=== PATIENT | female | born 1980 | race Caucasian/White ===

== ENCOUNTER → 2017-07-29 | Outpatient (CLI) | payer BC | END | disposition home or self-care (01) | LOC: C.PAPS 12:14 | PROVIDERS: ATTEND Family Medicine | DX: Z12.72 Encounter for screening for malignant neoplasm of vagina (principal) ==

== ENCOUNTER → 2017-10-09 | Day surgery (SDC) | payer BC ==
[2017-10-08 07:47] VITALS: Ht 160 cm; Wt 84.1 kg
--- NOTE | 2017-10-08 08:33 | History and Physical: Surg Cnt ---
History & Physical Date Oct 08, 2017. Chief Complaint ear infection, left History of Present Illness The patient is a 37 year old female with complaints of acute persistent left otitis media, failed antibiotics plus rocephin injections x 2, impending mastoiditis Additional History Hepatic Disease: No Endocrine Disorder: No Kidney Disease: No Hypertension: No Heart Disease: No Bleeding Tendencies: No Infectious Diseases: No Allergies Coded Allergies: Sulfa Antibiotics (Verified Allergy, Severe, HIVES AND ANAPHYLAXIS, ) Home Medications Scheduled Amoxicillin & Pot Clavulanate (Augmentin 875-125 mg), 1 TAB PO BID Citalopram Hydrobromide (Celexa), 40 MG PO QPM Levothyroxine Sodium (Synthroid), 150 MCG PO QAM Montelukast Sodium (Singulair), 10 MG PO QPM Multivitamin (Multivitamin), 1 TAB PO DAILY Prednisone (Deltasone), 10 MG PO UD Scheduled PRN Albuterol Hfa (Ventolin Hfa), 2-4 PUFFS INH Q6H PRN for SOB/Wheezing Physical Examination Skin: warm/dry, no rash Eyes: normal inspection, EOMI, sclerae normal ENT: normal ENT inspection, pharynx normal, + pertinent finding (left TM, dull , bulging, fluid) Head: normocephalic, atraumatic Neck: supple, no adenopathy, trachea midline Respiratory/Chest: lungs clear, normal breath sounds, no respiratory distress Cardiovascular: regular rate, rhythm, no edema, no murmur Abdomen / GI: normal bowel sounds, non tender Back: normal inspection Extremities: normal inspection, normal range of motion Neurologic/Psych: no motor/sensory deficits, alert, normal reflexes, oriented x 3 Diagnosis COME, left Plan of Treatment left PE tube
[~2017-10-09] VITALS: Ht 160 cm; Wt 84.1 kg
[~2017-10-09] MED LIST: AMOX875T PO; ATROPINE SULFATE 0.1 MG/ML 5ML SYR IV PRN; CITA40TA12 PO; DEXAMETHASONE SOD INJ 4 MG/ML VIAL IV PRN; DEXAMETHASONE SOD INJ 4 MG/ML VIAL ONE; EpHEDrine SULFATE INJ 50 MG/ML AMP IV PRN; FENTANYL CITRATE INJ 50 MCG/1 ML 2 ML VIAL IV PRN; FENTANYL CITRATE INJ 50 MCG/1 ML 2 ML VIAL ONE; HYDROCODONE/ACETAMOPHEN 5/325MG TAB PO PRN; KETOROLAC TROMETHAMINE 30 MG/ML VIAL IV. PRN; LABETALOL HCL IV 5 MG/ML 20ML IV PRN; LACTATED RINGER'S 1000ML 1,000 ML IV SCH; LEVO150T PO; LIDOCAINE HCL 2% 2 ML VIAL (20MG/ML) ONE; METOCLOPRAMIDE HCL INJ 5 MG/ML 2 ML VIAL IV PRN; MIDAZOLAM HCL 1 MG/ML 2ML VIAL ONE; MONT1TAB3 PO; MULT-506 PO; MoRPHine SULFATE 10 MG/ML CARP/VIAL IV PRN; OFLO0.3D4 OT; OFLOXACIN 0.3% OP SOLN 5 ML BTL ONE; ONDANSETRON INJ 2 MG/ML 2 ML VIAL IV PRN; ONDANSETRON INJ 2 MG/ML 2 ML VIAL ONE; PHENYLEPHRINE 100MCG/ML 5ML SYR IV PRN; PRED-603 PO; PROPOFOL IV EMULSION 10 MG/ML 20 ML VIAL IV ONE; SODIUM CHLORIDE 0.9% 1000ML 1,000 ML IV SCH; TETRACAINE HCL (OPHTH) 60 DROPS/4 ML BTL OP ONE; VNTHFA/IN INH
--- NOTE | 2017-10-09 10:18 | History & Physical Bridge Note ---
H&P Re-Evaluation Bridge Note: I have examined the patient, reviewed the History & Physical and in the interval since the performance of the History & Physical I have noted the following changes of clinical significance: No changes noted
--- NOTE | 2017-10-09 12:34 | Discharge Instructions-SurgCtr ---
Discharge Instructions Date of Service Oct 09, 2017. Visit Reason for Visit: Left Chronic O.m. With Effusion Discharge Discharge Diagnosis / Problem: same Discharge Goals Goal(s): Therapeutic intervention Activity Recommendations Activity Limitations: resume your previous activity Anesthesia . Post Anesthesia Instructions: If you have had General Anesthesia or IV Sedation: * Do not drive today. * Resume driving when surgeon permits. * Do not make important decisions or sign legal documents today. * Call surgeon for: 1. Temperature elevations greater than 101 degrees F. 2. Uncontrollable pain. 3. Excessive bleeding. 4. Persistent nausea and vomiting. 5. Medication intolerance (nausea, vomiting or rash). * For nausea and vomiting use only clear liquids such as: tea, soda, bouillon until nausea subsides, then gradually increase diet as tolerated. * If you have any concerns or questions, call your surgeon's office. If physician is unavailable and it is an emergency, call 911 or go to the nearest emergency room. . Instructions / Follow-Up Instructions / Follow-Up ACTIVITY RECOMMENDATIONS: * Take it easy today. * Return to regular activity tomorrow. OVER THE COUNTER MEDICATIONS: * You may use Tylenol for pain * Avoid aspirin or aspirin containing products, e.g. as they may increase bleeding. DIET: Resume previous diet RETURN TO SCHOOL/WORK: May return to normal activities tomorrow. SPECIAL CARE INSTRUCTIONS: * Drainage is not unusual during the first few days after placement of tubes. The drainage may be bloody. If it is foul smelling or very thick, please notify the doctor. Call or cell phone . * Keep water out of the ears when shampooing or bathing. Use cotton balls covered with Vaseline or "Macks" ear plugs. * Call physician if increased pain, fever over 101 degrees F. or any problems. FOLLOW UP VISIT: Follow-up Visit with Dr. Mathews in 2 weeks. Please call to schedule. Diet Recommendations Home Diet: no limitations Procedures Procedures Performed: Left PE Tube Insertion Pending Studies Studies pending at discharge: no Medical Emergencies . Who to Call and When: Medical Emergencies: If at any time you feel your situation is an emergency, please call 911 immediately. . Non-Emergent Contact Non-Emergency issues call your: Primary Care Provider . . "Provider Documentation" section prepared by Erin Suazo PA Drug Monitoring Program Search Results: no issues identified
--- NOTE | 2017-10-09 12:55 | OPERATIVE REPORT ---
DATE OF OPERATION: 10/09/2017 PREOPERATIVE DIAGNOSIS: Acute otitis media with early mastoiditis of the left ear. POSTOPERATIVE DIAGNOSIS: Same. PROCEDURE: Left myringotomy and PE tube insertion. SURGEON: Dr. Mtahews. ANESTHESIA: General LMA. COMPLICATIONS: None. BLOOD LOSS: Minimal. HISTORY OF PRESENT ILLNESS: This 37-year-old lady presented with acute onset of otitis media, treated with p.o. antibiotics with failure to respond, treated with 2 injections of Rocephin, but continues to have pain and hearing loss. DESCRIPTION OF PROCEDURE: The patient was brought to the operating room and placed in the supine position. General anesthesia was induced using LMA. The left ear was visualized, irrigated with peroxide, and cleaned of cerumen. Myringotomy incision was made anterior inferiorly and thick fluid was evacuated from the middle ear space. The Paparella tube was inserted without difficulty. The patient tolerated the procedure well and was taken to the recovery area in satisfactory condition. I attest to the content of the Intraoperative Record and any orders documented therein. Any exception s are noted below.
[2017-10-09 13:29] VITALS: TEMP 36.6
[2017-10-09 13:51] VITALS: BP 116/77; PULSE 71; O2SAT 98
--- NOTE | 2017-10-09 13:57 | Anesthesia Progress Nt - [facility] ---
Anesthesia Post Op Note Date & Time Oct 09, 2017 at 13:57 Vital Signs Pain Intensity: 0 Vital Signs Past 12 Hours Date Time Temp Pulse Resp B/P (MAP) Pulse Ox O2 Delivery O2 Flow Rate FiO2 10/09/17 13:51 71 18 116/77 (90) 98 Room Air 10/09/17 13:29 36.6 10/09/17 13:28 36.2 86 18 126/86 (99) 98 Room Air 10/09/17 13:26 76 10/09/17 13:26 76 124/ (82) 96 10/09/17 13:21 71 13 118/72 (78) 98 10/09/17 13:21 73 13 10/09/17 13:16 71 16 109/76 (83) 97 10/09/17 13:16 72 16 10/09/17 13:11 71 12 10/09/17 13:11 70 12 116/75 (92) 96 10/09/17 13:06 69 12 108/75 (91) 97 10/09/17 13:06 70 12 10/09/17 13:01 71 12 10/09/17 13:01 72 12 122/78 (83) 96 10/09/17 12:57 Room Air 10/09/17 12:56 71 12 115/77 (85) 98 10/09/17 12:56 73 12 10/09/17 12:51 70 14 117/83 (89) 10/09/17 12:51 14 10/09/17 12:46 14 10/09/17 12:46 76 14 111/72 (86) 10/09/17 12:41 13 10/09/17 12:41 74 13 108/70 (84) 10/09/17 12:36 79 16 106/73 (80) 100 10/09/17 12:36 80 16 10/09/17 12:32 101/64 (91) 10/09/17 12:29 36.6 76 16 101/64 97 Diffusion Mask 5 10/09/17 09:43 36.7 80 18 129/87 (101) 100 Room Air Notes Mental Status: alert / awake / arousable, participated in evaluation Pt Amnestic to Procedure: Yes Nausea / Vomiting: adequately controlled Pain: adequately controlled Airway Patency, RR, SpO2: stable & adequate BP & HR: stable & adequate Hydration State: stable & adequate Anesthetic Complications: no major complications apparent
== END | disposition home or self-care (01) ==
LOC: X.SURG 09:30
PROVIDERS: ATTEND Otolaryngology
DX: H66.92 Otitis media, unspecified, left ear (principal); H70.92 Unspecified mastoiditis, left ear; Z90.89 Acquired absence of other organs; F32.9 Major depressive disorder, single episode, unspecified; Z79.899 Other long term (current) drug therapy; J45.909 Unspecified asthma, uncomplicated; Z88.2 Allergy status to sulfonamides

== ENCOUNTER 2023-01-29 13:43 | Observation (INO) ==
[2023-01-29] MEDS ORDERED: SODIUM CHLOR 7% 4 ML NEB NEB ONE (14:56)
[2023-01-29] MEDS ORDERED: ENOXAPARIN INJ 40 MG/0.4 ML SYR SQ ONE (15:04)
[2023-01-29] MEDS ORDERED: ACETAMINOPHEN 325 MG TAB PO PRN (15:14)
[2023-01-29] MEDS ORDERED: LEVOTHYROXINE SODIUM 150 MCG TABLET PO SCH (15:15)
[2023-01-29] MEDS ORDERED: Patient's HEIGHT &/or WEIGHT Needed SCH (15:15)
[2023-01-29] MEDS ORDERED: LEVALBUTEROL HCL 1.25 MG/3 ML NEB ONE (15:18)
--- NOTE | 2023-01-29 16:36 | XRay Report ---
XR chest 2V PA/lateral HISTORY: Shortness of breath. COMPARISON: None. FINDINGS: The lungs are clear. Cardiac silhouette is normal in size. No pleural effusions. No pneumot horax. IMPRESSION: No acute process. ACT 112: Negative or not required by law. Electronically signed by: Willie Powell M.D. 01/29/2023 4:34 PM
[2023-01-29 17:18] LABS: Basophils # (auto) 0.03 K/uL (0-0.2); Basophils % (auto) 0.2 %; Eosinophils # (auto) 0.03 K/uL (0-0.50); Eosinophils % (auto) 0.2 %; Hematocrit (blood only) 37.5 % (37.0-47.0); Hemoglobin 12.1 g/dl (12.0-16.0); Immature Granulocytes # (auto) 0.08 K/uL (0.01-0.20); Immature Granulocytes % (auto) 0.5 %; Lymphocytes # (auto) 4.54 K/uL (1.2-3.4); Lymphocytes % (auto) 29.6 %; Mean Corpuscular Hemoglobin 27.6 pg (25.0-34.0); Mean Corpuscular Hgb Conc 32.3 g/dL (32.0-36.0); Mean Corpuscular Volume 85.4 fL (80.0-100.0); Mean Platelet Volume 9.8 fL (9.4-12.4); Monocytes # (auto) 1.11 K/uL (0.11-0.59); Monocytes % (auto) 7.2 %; Neutrophils # (auto) 9.55 K/uL (1.40-6.50); Neutrophils % (auto) 62.3 %; Platelet Count 347 K/uL (130-400); RDW Coefficient of Variation 14.3 % (11.5-14.5); RDW Standard Deviation 44.4 fL (36.4-46.3); Red Blood Count 4.39 M/uL (4.20-5.40); White Blood Count 15.34 K/ul (4.8-10.8)
[2023-01-29 17:38] LABS: Alanine Aminotransferase 12 U/L (7-52); Albumin Level 4.3 gm/dl (3.4-5.0); Alkaline Phosphatase 65 U/L (34-104); Anion Gap 7 (3-11); Aspartate Aminotransferase 11 U/L (13-39); BUN Creatinine Ratio 25.3 (10-20); Bilirubin,Total 0.3 mg/dl (0.2-1.0); Blood Urea Nitrogen 20 mg/dl (6-23); C Reactive Protein < 0.50 mg/dl (0-0.5); Calcium 8.9 mg/dl (8.5-10.1); Carbon Dioxide 29 mmol/L (21-32); Chloride 102 mmol/L (98-107); Creatinine Clr Calc Pharmacy 96.9 ml/min; Est GFR (African American) 106.3 ml/min; Est GFR (Non-African American) 91.7 ml/min; Glucose 112 mg/dl (70-99(Fasting)); Potassium 3.8 mmol/L (3.5-5.1); Sodium 138 mmol/L (136-145); Total Protein 7.4 gm/dl (6.0-8.3)
[2023-01-29 18:09] LABS: Partial Thromboplastin Ratio 0.8; Partial Thromboplastin Time 21.9 Seconds (21.0-31.0); Prothrombin Time 10.8 Seconds (9.0-12.0)
[2023-01-29] MEDS ORDERED: LEVALBUTEROL HCL 1.25 MG/3 ML NEB NEB SCH (19:00)
[2023-01-29 19:08] LABS: Appearance Urine Clear (Clear); Bilirubin Urine Negative (Negative); Blood Urine Negative (Negative); Color Urine Yellow; Glucose Urine UA Negative (Negative); Ketones Urine Trace (Negative); Leukocyte Esterase Urine Negative (Negative); Nitrite Urine Negative (Negative); Protein Urine Negative (Negative); Specific Gravity Urine 1.026 (1.000-1.030); Urobilinogen Urine Negative (Negative)
[2023-01-29 19:11] LABS: Pregnancy Test, Urine Negative (Negative)
[2023-01-29] MEDS: ALBUT/IPRATROP 3MG/0.5MG NEB 3 ML VIAL NEB SCH (19:34)
[2023-01-29] MEDS: CITALOPRAM 40 MG TAB PO SCH (20:37)
[2023-01-29] MEDS: methylPREDNISolone 40 MG in SYRINGE 0 ML IV SCH (20:37)
[2023-01-29] MEDS: MONTELUKAST SODIUM 10 MG TABLET PO SCH (20:38)
[2023-01-29] MEDS ORDERED: BUDESONIDE 90 MCG INH INH SCH (21:00)
[2023-01-29] MEDS ORDERED: FLUTICASONE FUROATE 100MCG 14 PUFFS/INHALER INH SCH (21:00)
--- NOTE | 2023-01-29 21:51 | History & Physical Report ---
Date of Service January 29, 2023 Assessment & Plan (1) Asthma exacerbation: Plan: 42 yo female presents to the hospitals with a subacute cough and weakness and fatigue. Recent COVID on 01/15 playing a role. This has not improved despite 5 days of cefdinir completed today, prednisone taper started last and completed a couple of days ago. Patient also received a dose of solumedrol at her PCP's office the day prior to admission. Patient has been on albuterol nebs, Iinhaled corticosteroids. Plan would be to improve pulmonary toilet Ordered: -Flutter valve, -Hypertonic saline As patient has no signs of postnasal drip or reflux, will order duoneb as ipratropium has a role in decreasing postviral cough Will consider a steroid burst of IV soulmedrol of 40 q8h for 3 doses. Will consider another slow taper if discharged tomorrow. obtained sputum culture. will hold antibiotics, negative inflammatory markers, negative procal. WBC is elevatd but this is likely due to her corticosteroid use. As patient has required multiple albuterol doses, will add breo in the short term for the AM. As our hospital Breo has 14 days of doses, will not prescribe an additonal breo inhaaler at discharge as she can take home the Breo she has been using. Will defer to PCP if addional LABA is required. (2) Hypothyroid: Plan: resume home meds. check TSH in AM (3) Depression: Plan: resume home meds stable Admission and Anticipated Discharge Date Admission Date: January 29, 2023 History of Present Illness Chief Complaint: SOB Primary Care Provider: Lew Velasquez 42 yo female with PMH of intermittent asthma and a recent bout of a viral illness in [facility] which required multiple antibiotics and steroids. Her October episode was similar in the sense that she felt short of breath and was having an unrelentless cough. In October she was treated on azithromycin for 5 days, followed by 10 days of cefdinir as patient had no improvement. This was then followed by 7 days of levaquin. Each treatment course was accompanied by corticosteroid use. Patient reports she improved by December after her levaquin dose. Her cough was persistent but it was milder and no longer daiy and she was able to return to [facility]. However on 01/15, patient tested positive for COVID. Patient reports that despite a prednisone taper and antibiotics her cough persistes. She feels fatigued and has been mainly at home due to her SOB. Patient is currently completed 5 days of her 10 day course of cefdinir, and completed a steroid taper. Patient reports she also had solumedrol at her PCPs office. Patient states that at home, she has been treated with her ICS, albuterol inhaler. Normally takes albuterol once or twice a month, but lately has required multiple doses daily. Given her lack of improvement, Dr. Velasquez called [facility] provider, and he accepted patient for direct admission. Allergies Allergy/AdvReac Type Severity Reaction Status Date / Time Sulfa (Sulfonamide Allergy Severe HIVES AND Verified 12/20/21 11:36 Antibiotics) ANAPHYLAXIS Home Medications Medication Instructions Recorded Confirmed Type albuterol sulfate 90 mcg/actuation 1 - 2 puff inhalation UD PRN ASTHMA 10/25/19 01/29/23 History aerosol inhaler citalopram 40 mg tablet (Celexa) 20 mg PO QPM 10/25/19 01/29/23 History levothyroxine 150 mcg tablet 137 - 150 mcg PO UD 10/25/19 01/29/23 History (Synthroid) montelukast 10 mg tablet 10 mg PO QPM 10/25/19 01/29/23 History (Singulair) budesonide 90 mcg/actuation breath 2 inh inhalation BID 11/21/21 01/29/23 History activated powder inhaler (Pulmicort Flexhaler) fluticasone propionate 50 2 spray intranasal DAILY 01/29/23 01/29/23 History mcg/actuation nasal spray,suspension Past Med/Surg History Medical History Asthma MILD , NO RECENT FLARE UPS, LAST USE ALBUTEROL MONTHS AGO Depression Environmental allergies DUST & MOLD Hypothyroid Lesion of endometrium REASON FOR UPCOMING SURGERY Surgical History History of ear, nose, and throat (ENT) surgery TUBES AND ADENOID SURGERY CHILD History of placement of ear tubes 2018 L EAR AND SINCE REMOVED History of placement of ear tubes CURRENTLY IN PLACE, LEFT History of tonsillectomy Family History Aunt Family history of diabetes mellitus (DM) Social History Smoking Status: Never smoker Hx Alcohol Use: Yes Alcohol type: beer, wine and hard liquor Hx Substance Use: No Preferred Language: Grenadian Communication Ability: Effective Shredder Picker Required: No Beliefs That Will Affect Care: None Current Living Situation: Spouse and Family Feels Safe at Home: Yes Safety Concerns: Feels Safe At This Time Assistive Devices: Contacts and Glasses Review of Systems Constitutional: + body aches, + fatigue and + weakness; no fever Eyes: no blind spots and no diplopia Ear, Nose, Mouth, Throat: no ear pain Respiratory: + cough, + change in sputum and + dyspnea Cardiovascular: no chest pain Gastrointestinal: + abdominal pain Genitourinary: no dysuria Musculoskeletal: no back pain Integumentary: no rash Neurologic: no gait abnormality Psychiatric: no behavioral changes Endocrine: + fatigue Hematologic / Lymphatic: no easy bleeding Allergy / Immunological: no lip swelling Physical Exam Constitutional: WD/WN, vitals as above Eyes: PERRL, conjunctivae normal, anicteric sclerae ENMT: external ear and nose normal, oropharynx normal Neck: normal visual inspection Respiratory: normal respiratory effort, lungs clear to auscultation Cardiovascular: RRR, no murmur, no edema Gastrointestinal (Abdomen): Inspection/Auscultation: abdomen normal to inspection; abdomen not distended Musculoskeletal: no cyanosis or clubbing, extremities motor strength 5/5 Skin: no rashes, warm and dry Neurologic: moves all extremities and awake Psychiatric: A+Ox3, euthymic affect Results & Data Results & Data ([facility]) Vital Signs (Past 12 Hours) Vital Signs Temp Pulse Resp BP Pulse Ox O2 Del Method 01/29/23 20:32 36.7 C 85 16 120/78 95 Room Air 01/29/23 19:38 100 H 20 95 Room Air 01/29/23 16:25 Room Air 01/29/23 15:26 108 H 20 95 Room Air 01/29/23 14:39 36.7 C 108 H 16 142/85 H 96 Room Air PG Care Time/CCT Total # of Minutes Spent Total Time Spent with Patient: Total time spent is greater than 50% in coordination of care (as documented) at patient's floor/unit and/or counseling patient: Coding Level of Care Code 59146 INT INP/OBS CARE Diagnoses Asthma exacerbation J45.901 Hypothyroid E03.9 Depression F32.9
[2023-01-30] MEDS: ALBUT/IPRATROP 3MG/0.5MG NEB 3 ML VIAL NEB SCH ×4 (01:09→19:46)
[2023-01-30] MEDS: methylPREDNISolone 40 MG in SYRINGE 0 ML IV SCH ×4 (03:47→20:51)
[2023-01-30] MEDS ORDERED: LEVOTHYROXINE SODIUM 137 MCG TABLET PO SCH (06:30)
[2023-01-30] MEDS ORDERED: LEVOTHYROXINE SODIUM 150 MCG TABLET PO SCH (06:30)
[2023-01-30] MEDS: SODIUM CHLOR 7% 4 ML NEB NEB SCH ×2 (07:12→19:46)
[2023-01-30 09:01] LABS: Hematocrit (blood only) 37.3 % (37.0-47.0); Mean Corpuscular Hemoglobin 27.8 pg (25.0-34.0); Mean Corpuscular Hgb Conc 32.2 g/dL (32.0-36.0); Mean Corpuscular Volume 86.3 fL (80.0-100.0); Mean Platelet Volume 9.5 fL (9.4-12.4); Platelet Count 319 K/uL (130-400); RDW Coefficient of Variation 14.4 % (11.5-14.5); RDW Standard Deviation 45.3 fL (36.4-46.3); Red Blood Count 4.32 M/uL (4.20-5.40); White Blood Count 12.21 K/ul (4.8-10.8)
[2023-01-30 09:21] LABS: Anion Gap 10 (3-11); Blood Urea Nitrogen 14 mg/dl (6-23); C Reactive Protein < 0.50 mg/dl (0-0.5); Calcium 8.8 mg/dl (8.5-10.1); Carbon Dioxide 24 mmol/L (21-32); Chloride 102 mmol/L (98-107); Chol HDL Ratio 3.6 (0-5); Cholesterol 232 mg/dl (0-200); Creatinine Clr Calc Pharmacy 125.6 ml/min; Est GFR (African American) 128.7 ml/min; Glucose 179 mg/dl (70-99(Fasting)); HDL Cholesterol 65 mg/dl; LDL Cholesterol Calculated 148 mg/dl; Potassium 4.1 mmol/L (3.5-5.1); Sodium 136 mmol/L (136-145); Triglycerides 95 mg/dl (0-150); VLDL Cholesterol 19 mg/dl (0-30)
[2023-01-30 09:24] LABS: Adenovirus PCR Not Detected (NotDetected); Bordetella parapertussis PCR Not Detected (NotDetected); Bordetella pertussis PCR Not Detected (NotDetected); Chlamydia pneumoniae PCR Not Detected (NotDetected); Coronavirus 229E PCR Not Detected (NotDetected); Coronavirus HKU1 PCR Not Detected (NotDetected); Coronavirus NL63 PCR Not Detected (NotDetected); Coronavirus OC43PCR Not Detected (NotDetected); Human Metapneumovirus PCR Not Detected (NotDetected); Influenza A PCR Not Detected (NotDetected); Influenza B PCR Not Detected (NotDetected); Mycoplasma pneumoniae PCR Not Detected (NotDetected); Parainfluenza Virus 1 PCR Not Detected (NotDetected); Parainfluenza Virus 2 PCR Not Detected (NotDetected); Parainfluenza Virus 3 PCR Not Detected (NotDetected); Parainfluenza Virus 4 PCR Not Detected (NotDetected); Respiratory Syncytial VirusPCR Not Detected (NotDetected); Rhinovirus/Enterovirus PCR Not Detected (NotDetected)
[2023-01-30 10:06] LABS: Estimated Average Glucose 137 mg/dl; Hemoglobin A1C 6.4 % (4.5-5.6)
[2023-01-30] MEDS: FLUTICASONE/VILANTEROL 100/25MCG 14 PUFFS/INHALER INH SCH (10:20)
[2023-01-30 10:30] LABS: Coronavirus CoV-2 (COVID19)PCR DETECTED (NotDetected)
--- NOTE | 2023-01-30 13:37 | Hospitalist Progress Note ---
Date of Service January 30, 2023 Assessment & Plan (1) Asthma exacerbation: Plan: 2nd to COVID-19 infection improved with IV steroids, bronchodilators & supportive care wean TID solumedrol to BID cont pulm toilet cont bronchodilators given the frequency of flares over the last 6 months I agree with step-up therapy to Breo cont singulair peak flows improving (2) Hypothyroid: Plan: TSH mildly low but leave synthroid dose as is for now repeat TSH 6 weeks (3) Depression: Plan: cont home meds (4) COVID-19: Plan: she is about 2 weeks - 2.5 weeks into her illness symptoms worsened about 7-10 days into the illness checked d-dimer - negative CRP normal procal negative cxr clear defer on advanced imaging (CTA chest) cont Rx in #1 above (5) Prediabetes: Plan: a1c 6.4% early childhood educator aide requested (6) Hyperlipidemia: Plan: LDL 148 HDL 65 will work counselor patient regarding results Plan DVT proph - lovenox daily observe overnight consider 2-step before d/c Admission and Anticipated Discharge Date Admission Date: January 29, 2023 Subjective patient feeling better in comparison to yesterday peak flows have improved cough improved can take deeper breaths still with mild CHESTER mild chest tightness but no pain or pleuritic pain no fevers self-tested for COVID mid-January and was + multiple asthma flares - triggered by viral infections - over the last 6 months requiring multiple rounds of steroids by mouth & abx Review of Systems Review of Systems: gen - no fevers or chills cv - no pleuritic pain or orthopnea pulm - no significant sputum GI - no N/V Physical Exam Physical Exam: gen - coughing but NAD otherwise mouth - MMM heart - tachy, s1 s2, no murmur lungs - airation fair/good; no rales; no wheeze; coughing with taking large breaths abd - soft NT ND BS+ ext - no edema, pulses 2+ b/l Results & Data Results & Data ([facility]) Vital Signs (Past 12 Hours) Vital Signs Temp Pulse Pulse Resp BP Pulse Ox O2 Del Method 01/30/23 12:39 101 H 18 96 Room Air 01/30/23 09:04 92 H 96 Room Air 01/30/23 07:46 Room Air 01/30/23 07:55 36.6 C 98 H 14 133/85 93 Room Air 01/30/23 07:13 80 16 96 Room Air Laboratory Results Laboratory Results - last 48 hr 01/29/23 01/29/23 01/29/23 16:53 16:53 16:53 WBC 15.34 H RBC 4.39 Hgb 12.1 Hct 37.5 MCV 85.4 MCH 27.6 MCHC 32.3 RDW Std Deviation 44.4 RDW Coeff of Jerome 14.3 Plt Count 347 MPV 9.8 Immature Gran % (Auto) 0.5 Neut % (Auto) 62.3 Lymph % (Auto) 29.6 [place] % (Auto) 7.2 Eos % (Auto) 0.2 Baso % (Auto) 0.2 Neut # (Auto) 9.55 H Lymph # (Auto) 4.54 H [place] # (Auto) 1.11 H Eos # (Auto) 0.03 Baso # (Auto) 0.03 Immature Gran # (Auto) 0.08 ESR 10 PT 10.8 INR 1.0 APTT 21.9 PTT Ratio 0.8 D-Dimer Sodium Potassium Chloride Carbon Dioxide Anion Gap BUN Creatinine Est Cr Clr Drug Dosing Est GFR ( Amer) Est GFR (Non-Af Amer) BUN/Creatinine Ratio Glucose Estimat Average Glucose Hemoglobin A1c Calcium Magnesium Total Bilirubin Direct Bilirubin AST ALT Alkaline Phosphatase C-Reactive Protein Total Protein Albumin Triglycerides Cholesterol LDL Cholesterol, Calc VLDL Cholesterol, Calc HDL Cholesterol Cholesterol/HDL Ratio Procalcitonin TSH Urine Color Urine Appearance Urine pH Ur Specific [place] Urine Protein Urine Glucose (UA) Urine Ketones Urine Blood Urine Nitrite Urine Bilirubin Urine Urobilinogen Ur Leukocyte Esterase Urine Test Adenovirus (PCR) B. pertussis DNA (PCR) B.parapertussis DNA PCR C. pneumoniae DNA (PCR) Coronavirus OC43 (PCR) Coronavirus HKU1 (PCR) Coronavirus 229E (PCR) SARS-CoV-2 (PCR) Coronavirus NL63 (PCR) Human Metapneumovir PCR Influenza Type A (PCR) Influenza Type B (PCR) M. pneumoniae (PCR) Parainfluenza 1 (PCR) Parainfluenza 2 (PCR) Parainfluenza 3 (PCR) Parainfluenza 4 (PCR) RSV (PCR) Entero/Rhino (PCR) 01/29/23 01/29/23 01/29/23 16:53 16:53 17:45 WBC RBC Hgb Hct MCV MCH MCHC RDW Std Deviation RDW Coeff of Jerome Plt Count MPV Immature Gran % (Auto) Neut % (Auto) Lymph % (Auto) [place] % (Auto) Eos % (Auto) Baso % (Auto) Neut # (Auto) Lymph # (Auto) [place] # (Auto) Eos # (Auto) Baso # (Auto) Immature Gran # (Auto) ESR PT INR APTT PTT Ratio D-Dimer Sodium 138 Potassium 3.8 Chloride 102 Carbon Dioxide 29 Anion Gap 7 BUN 20 Creatinine 0.79 Est Cr Clr Drug Dosing 96.9 Est GFR ( Amer) 106.3 Est GFR (Non-Af Amer) 91.7 BUN/Creatinine Ratio 25.3 H Glucose 112 H Estimat Average Glucose Hemoglobin A1c Calcium 8.9 Magnesium Total Bilirubin 0.3 Direct Bilirubin 0.0 AST 11 L ALT 12 Alkaline Phosphatase 65 C-Reactive Protein < 0.50 Total Protein 7.4 Albumin 4.3 Triglycerides Cholesterol LDL Cholesterol, Calc VLDL Cholesterol, Calc HDL Cholesterol Cholesterol/HDL Ratio Procalcitonin < 0.05 TSH Urine Color Yellow Urine Appearance Clear Urine pH 6.0 Ur Specific [place] 1.026 Urine Protein Negative Urine Glucose (UA) Negative Urine Ketones Trace H Urine Blood Negative Urine Nitrite Negative Urine Bilirubin Negative Urine Urobilinogen Negative Ur Leukocyte Esterase Negative Urine Test Adenovirus (PCR) B. pertussis DNA (PCR) B.parapertussis DNA PCR C. pneumoniae DNA (PCR) Coronavirus OC43 (PCR) Coronavirus HKU1 (PCR) Coronavirus 229E (PCR) SARS-CoV-2 (PCR) Coronavirus NL63 (PCR) Human Metapneumovir PCR Influenza Type A (PCR) Influenza Type B (PCR) M. pneumoniae (PCR) Parainfluenza 1 (PCR) Parainfluenza 2 (PCR) Parainfluenza 3 (PCR) Parainfluenza 4 (PCR) RSV (PCR) Entero/Rhino (PCR) 01/29/23 01/30/23 01/30/23 17:45 07:55 08:43 WBC RBC Hgb Hct MCV MCH MCHC RDW Std Deviation RDW Coeff of Jerome Plt Count MPV Immature Gran % (Auto) Neut % (Auto) Lymph % (Auto) [place] % (Auto) Eos % (Auto) Baso % (Auto) Neut # (Auto) Lymph # (Auto) [place] # (Auto) Eos # (Auto) Baso # (Auto) Immature Gran # (Auto) ESR PT INR APTT PTT Ratio D-Dimer Sodium 136 Potassium 4.1 Chloride 102 Carbon Dioxide 24 Anion Gap 10 BUN 14 Creatinine 0.61 Est Cr Clr Drug Dosing 125.6 Est GFR ( Amer) 128.7 Est GFR (Non-Af Amer) 111.0 BUN/Creatinine Ratio 23.0 H Glucose 179 H Estimat Average Glucose Hemoglobin A1c Calcium 8.8 Magnesium Total Bilirubin Direct Bilirubin AST ALT Alkaline Phosphatase C-Reactive Protein < 0.50 Total Protein Albumin Triglycerides 95 Cholesterol 232 H LDL Cholesterol, Calc 148 VLDL Cholesterol, Calc 19 HDL Cholesterol 65 Cholesterol/HDL Ratio 3.6 Procalcitonin TSH Urine Color Urine Appearance Urine pH Ur Specific [place] Urine Protein Urine Glucose (UA) Urine Ketones Urine Blood Urine Nitrite Urine Bilirubin Urine Urobilinogen Ur Leukocyte Esterase Urine Test Negative Adenovirus (PCR) Not Detected B. pertussis DNA (PCR) Not Detected B.parapertussis DNA PCR Not Detected C. pneumoniae DNA (PCR) Not Detected Coronavirus OC43 (PCR) Not Detected Coronavirus HKU1 (PCR) Not Detected Coronavirus 229E (PCR) Not Detected SARS-CoV-2 (PCR) DETECTED A* Coronavirus NL63 (PCR) Not Detected Human Metapneumovir PCR Not Detected Influenza Type A (PCR) Not Detected Influenza Type B (PCR) Not Detected M. pneumoniae (PCR) Not Detected Parainfluenza 1 (PCR) Not Detected Parainfluenza 2 (PCR) Not Detected Parainfluenza 3 (PCR) Not Detected Parainfluenza 4 (PCR) Not Detected RSV (PCR) Not Detected Entero/Rhino (PCR) Not Detected 01/30/23 01/30/23 01/30/23 08:43 08:43 08:43 WBC 12.21 H RBC 4.32 Hgb 12.0 Hct 37.3 MCV 86.3 MCH 27.8 MCHC 32.2 RDW Std Deviation 45.3 RDW Coeff of Jerome 14.4 Plt Count 319 MPV 9.5 Immature Gran % (Auto) Neut % (Auto) Lymph % (Auto) [place] % (Auto) Eos % (Auto) Baso % (Auto) Neut # (Auto) Lymph # (Auto) [place] # (Auto) Eos # (Auto) Baso # (Auto) Immature Gran # (Auto) ESR PT INR APTT PTT Ratio D-Dimer Sodium Potassium Chloride Carbon Dioxide Anion Gap BUN Creatinine Est Cr Clr Drug Dosing Est GFR ( Amer) Est GFR (Non-Af Amer) BUN/Creatinine Ratio Glucose Estimat Average Glucose 137 Hemoglobin A1c 6.4 H Calcium Magnesium Total Bilirubin Direct Bilirubin AST ALT Alkaline Phosphatase C-Reactive Protein Total Protein Albumin Triglycerides Cholesterol LDL Cholesterol, Calc VLDL Cholesterol, Calc HDL Cholesterol Cholesterol/HDL Ratio Procalcitonin TSH 0.102 L Urine Color Urine Appearance Urine pH Ur Specific [place] Urine Protein Urine Glucose (UA) Urine Ketones Urine Blood Urine Nitrite Urine Bilirubin Urine Urobilinogen Ur Leukocyte Esterase Urine Test Adenovirus (PCR) B. pertussis DNA (PCR) B.parapertussis DNA PCR C. pneumoniae DNA (PCR) Coronavirus OC43 (PCR) Coronavirus HKU1 (PCR) Coronavirus 229E (PCR) SARS-CoV-2 (PCR) Coronavirus NL63 (PCR) Human Metapneumovir PCR Influenza Type A (PCR) Influenza Type B (PCR) M. pneumoniae (PCR) Parainfluenza 1 (PCR) Parainfluenza 2 (PCR) Parainfluenza 3 (PCR) Parainfluenza 4 (PCR) RSV (PCR) Entero/Rhino (PCR) 01/30/23 01/30/23 08:43 14:19 WBC RBC Hgb Hct MCV MCH MCHC RDW Std Deviation RDW Coeff of Jerome Plt Count MPV Immature Gran % (Auto) Neut % (Auto) Lymph % (Auto) [place] % (Auto) Eos % (Auto) Baso % (Auto) Neut # (Auto) Lymph # (Auto) [place] # (Auto) Eos # (Auto) Baso # (Auto) Immature Gran # (Auto) ESR PT INR APTT PTT Ratio D-Dimer < 190 Sodium Potassium Chloride Carbon Dioxide Anion Gap BUN Creatinine Est Cr Clr Drug Dosing Est GFR ( Amer) Est GFR (Non-Af Amer) BUN/Creatinine Ratio Glucose Estimat Average Glucose Hemoglobin A1c Calcium Magnesium 2.3 Total Bilirubin Direct Bilirubin AST ALT Alkaline Phosphatase C-Reactive Protein Total Protein Albumin Triglycerides Cholesterol LDL Cholesterol, Calc VLDL Cholesterol, Calc HDL Cholesterol Cholesterol/HDL Ratio Procalcitonin TSH Urine Color Urine Appearance Urine pH Ur Specific [place] Urine Protein Urine Glucose (UA) Urine Ketones Urine Blood Urine Nitrite Urine Bilirubin Urine Urobilinogen Ur Leukocyte Esterase Urine Test Adenovirus (PCR) B. pertussis DNA (PCR) B.parapertussis DNA PCR C. pneumoniae DNA (PCR) Coronavirus OC43 (PCR) Coronavirus HKU1 (PCR) Coronavirus 229E (PCR) SARS-CoV-2 (PCR) Coronavirus NL63 (PCR) Human Metapneumovir PCR Influenza Type A (PCR) Influenza Type B (PCR) M. pneumoniae (PCR) Parainfluenza 1 (PCR) Parainfluenza 2 (PCR) Parainfluenza 3 (PCR) Parainfluenza 4 (PCR) RSV (PCR) Entero/Rhino (PCR) PG Care Time/CCT Total # of Minutes Spent Total Time Spent with Patient: Total time spent is greater than 50% in coordination of care (as documented) at patient's floor/unit and/or counseling patient: Coding Level of Care Code 97056 SUB INP/OBS CARE 2/35MIN Diagnoses Asthma exacerbation J45.901 Hypothyroid E03.9 Depression F32.9 COVID-19 U07.1 Prediabetes R73.03 Hyperlipidemia E78.5
[2023-01-30 14:45] LABS: D Dimer < 190 ug/L FEU (0-500)
[2023-01-30] MEDS: ENOXAPARIN INJ 40 MG/0.4 ML SYR SQ SCH (17:40)
[2023-01-30] MEDS: MONTELUKAST SODIUM 10 MG TABLET PO SCH (20:50)
[2023-01-30] MEDS: CITALOPRAM 40 MG TAB PO SCH (20:50)
[2023-01-31] MEDS: ALBUT/IPRATROP 3MG/0.5MG NEB 3 ML VIAL NEB SCH ×3 (01:14→12:57)
[2023-01-31] MEDS ORDERED: LEVOTHYROXINE SODIUM 137 MCG TABLET PO SCH (06:30)
[2023-01-31] MEDS: SODIUM CHLOR 7% 4 ML NEB NEB SCH (07:19)
[2023-01-31] MEDS: FLUTICASONE/VILANTEROL 100/25MCG 14 PUFFS/INHALER INH SCH (08:25)
[2023-01-31] MEDS: methylPREDNISolone 40 MG in SYRINGE 0 ML IV SCH (08:27)
--- NOTE | 2023-01-31 15:55 | Discharge Summary ---
Date of Service date of admission - January 29, 2023 date of discharge - January 31, 2023 Admission HPI Per Admitting Provider 42 yo female with PMH of intermittent asthma and a recent bout of a viral illness in October which required multiple antibiotics and steroids. Her October episode was similar in the sense that she felt short of breath and was having an unrelentless cough. In October she was treated on azithromycin for 5 days, followed by 10 days of cefdinir as patient had no improvement. This was then followed by 7 days of levaquin. Each treatment course was accompanied by corticosteroid use. Patient reports she improved by December after her levaquin dose. Her cough was persistent but it was milder and no longer daiy and she was able to return to [facility]. However on 01/15, patient tested positive for COVID. Patient reports that despite a prednisone taper and antibiotics her cough persistes. She feels fatigued and has been mainly at home due to her SOB. Patient is currently completed 5 days of her 10 day course of cefdinir, and completed a steroid taper. Patient reports she also had solumedrol at her PCPs office. Patient states that at home, she has been treated with her ICS, albuterol inhaler. Normally takes albuterol once or twice a month, but lately has required multiple doses daily. Given her lack of improvement, Dr. Velasquez called [facility] provider, and he accepted patient for direct admission. Principal Diagnosis 1. COVID-19 infection 2. Asthma exacerbation 2nd to #1 3. At least moderate, persistent asthma Discharge Exam gen - looks good today, no cough during the examination today mouth - MMM heart - RRR, s1 s2, no murmur lungs - airation good; no rales; no wheeze; no cough with taking large breaths today abd - soft NT ND BS+ ext - no edema, pulses 2+ b/l psych - a/o x 3 Discharge Data Allergies Allergy/AdvReac Type Severity Reaction Status Date / Time Sulfa (Sulfonamide Allergy Severe HIVES AND Verified 12/20/21 11:36 Antibiotics) ANAPHYLAXIS Procedures Performed 2-step ambulatory O2 test - no need for home O2 Ordered Studies Chest X-Ray 01/29/23 14:50 XR chest 2V PA/lateral HISTORY: Shortness of breath. COMPARISON: None. FINDINGS: The lungs are clear. Cardiac silhouette is normal in size. No pleural effusions. No pneumothorax. IMPRESSION: No acute process. ACT 112: Negative or not required by law. Electronically signed by: Willie Powell M.D. 01/29/2023 4:34 PM Hospital Course (1) COVID-19: During the hospital stay she was about 2 to 2.5 weeks into her illness. Procal was negative. CRP was 0. D-dimer was normal. CXR did not show discrete pneumonia. WBC count was mildly elevated but likely due to pre-hospital steroid usage. She never had an O2 requirement while hospitalized. Remdesivir treatment was deferred due to where she was in her COVID illness. She did receive IV steroids due to #2 below. 2-step ambulatory O2 test showed she did NOT need home O2. (2) Asthma exacerbation: 2nd to COVID-19 infection. Treated/improved with IV steroids, bronchodilators & supportive care. Blood cultures remained negative while here. Sputum culture was negative on day of discharge. Steroids were weaned during her stay. At discharge she will complete a 12-day taper of dexamethasone. The patient reported that the saline nebs employed while here were helpful. Thus, a prescription for saline nebs was given. See "asthma" below. (3) Asthma, persistent not controlled: The patient has had multiple asthma flares dating back to the fall of 2021. This was despite use of singulair & pulmicort inhaler. At minimum she has moderate persistent asthma - borderline severe. Thus, pulmicort was "stepped up" to Wixela 1 inhalation BID. She will continue on singulair. A dexamethasone course was given at discharge for her acute flare as well as saline nebs for symptomatic relief and to help with expectoration. She was given a peak flow meter and instructed on its use. She was also set up to see [facility] for PFTs and ongoing care of her asthma. (4) Hypothyroid: TSH mildly low (0.102) but leave synthroid dose as is for now. repeat TSH 6 weeks as outpatient. (5) Depression: cont Celexa (6) Prediabetes: Hba1c 6.4% Patient is aware of this diagnosis and plans to continue close surveillance with her PCP. (7) Hyperlipidemia: LDL 148 HDL 65 patient told about her results. f/u with her PCP for this. Plan DVT proph - received lovenox daily while here. Total Time Total Time Spent Total Time Spent (In Minutes): 40 Discharge Plan Discharge Items Patient Disposition: Home - Self-Care Reason For Visit: ACUTE ASTHMA EXACERBATION Discharge Diagnosis: 1. Asthma exacerbation due to COVID-19 infection 2. Recurrent asthma exacerbations 3. pre-diabetes 4. high cholesterol 5. hypothyroidism Activity: As commented below Activity Comment: gradually increase activities as tolerated over the next 7-10 days Exercise/Sports: Wait until after follow-up appointment Driving/Machine Use: Resume 1 day after discharge Non-emergency contact: Primary Care Provider and Guardian Family Member Call non-emergency contact if: you have any medication questions, your symptoms worsen and you have a fever Follow-up/Referrals: Devan Vila MD [Physician] - 02/24/23 ([facility] visit for asthma ) Lew Velasquez [Primary Care Provider] - (please see Dr Velasquez within 5 days for recheck ) Diet: Carb Consistent or DM2 Addtl Attending Provider Instructions: Mrs Barnett, Jose were hospitalized for asthma exacerbation due to COVID-19 infection. Symptoms improved with IV steroids, albuterol nebs, and other supportive care treatments. Chest x-ray did not show any obvious pneumonia. Blood work was reassuring that your COVID illness was likely not complicated by bacterial infection or blood clots of the lungs. On day of discharge a walking oxygen test showed that you do not need oxygen for home. Since late 2021 your asthma has been very active as a result of frequent viral respiratory infections. You have needed numerous courses of prednisone, etc. As a result we have made some changes in your asthma treatment regimen. Recommendations - 1. Dexamethasone steroid taper -- start 02/01/23. Take with food. It is a 12- day steroid taper for your asthma. 2. Continue your albuterol nebs or albuterol inhaler every 4-6 hours scheduled for several more days as your asthma symptoms gradually settle down. As you improve you can just use the albuterol on an as needed basis. 3. You may use saline nebulizer treatments every 12 hours as needed if you feel particularly congested in the lungs. This may work best first thing in the morning when you wake up. Again these are as needed. Prescription sent to [facility] for you. 4. Please discontinue your pulmicort inhaler. 5. Unfortunately once daily Breo Inhaler did not appear to be on your prescription formulary. Thus, please take Wixela Inhaler (contains a combination of inhaled steroid and long-acting albuterol) 1 puff twice daily every day. This is your "maintenance" inhaler. Please rinse your mouth with water after each use. 6. May continue to take robitussin-codeine cough syrup - 5cc every 6 hours as needed for severe cough. Please do not drink alcohol with this medication. Please do not drive a car if you are using this medication. It may cause sleepiness. 7. You can continue to check the health of your lungs by using the peak flow meter that was provided to you at the hospital. If you are below your "green zone" this means that your asthma is active and that you need to continue to watch your symptoms carefully, continue to use your albuterol neb or inhaler as needed for symptoms, etc. If you find that your symptoms are worsening and that your peak flow meter levels are dropping please contact your family doctor right away. 8. Continue your flutter valve several times a day for another 5-7 days. 9. You may have a cough for several more weeks as you recover from your COVID illness. 10. You are unlikely to be contagious to others at this time. No need to continue isolating at home. 11. I suspect you may have another 1-2 weeks of feeling tired/fatigued from your COVID illness. Be sure to rest, focus on good nutrition and hydration, etc during your recovery. 12. Continue to mask in public so that you can try & avoid additional illnesses during your COVID recovery period. 13. Please follow-up with Dr Velasquez about your pre-diabetes and high cholesterol. In addition, your thyroid level (TSH) was slightly off during this stay. Please have Dr Velasquez repeat your thyroid level in 6-8 weeks. Follow-up - see separate section Return to [facility] if - * you have fevers over 100 degrees * you have worsening shortness of breath, wheezing, or cough despite use of all of your asthma medications * your pulse oximetry levels on your finger are less than 92% consistently * any other concerns It was our pleasure to care for you at [facility]! Please continue to feel better, - Inderjit Villeda Pending Studies at Discharge: Yes Studies:: blood cultures, sputum culture (both negative thus far); legionella testing Stand-Alone Forms: My [facility], Smoking Cessation Medications and DC Order Prescriptions: New sodium chloride 7 % Solution For Nebulization 4 ml NEB BID PRN (Reason: severe chest congestion/wheezing) Qty: 30 0RF fluticasone propion-salmeterol [Wixela Inhub] 250-50 mcg/dose blister with device 1 inh inhalation BID Qty: 60 2RF Rx Instructions: rinse mouth with water after use. dexamethasone 2 mg tablet 2 mg PO .daily as directed Qty: 20 0RF Rx Instructions: start 02/01/23: take 3 tabs PO daily x 3 days; 2 tabs po daily x 3 days; 1 tab po daily x 3 days; 1/2 tab po daily x 3 days. Take with food. codeine-guaifenesin [Guaifenesin AC] 10-100 mg/5 mL liquid 5 ml PO Q6H PRN (Reason: cough) Qty: 120 0RF Continued levothyroxine [Synthroid] 150 mcg Tablet 137 - 150 mcg PO UD Patient Comments: ALTERNATE 150 MCG ONE DAY THEN NEXT DAY 137 MCG - MORNING montelukast [Singulair] 10 mg Tablet 10 mg PO QPM fluticasone propionate 50 mcg/actuation [place],Suspension 2 spray INTRANASAL DAILY Rx Instructions: administer into each nostril Changed citalopram [Celexa] 40 mg Tablet 40 mg PO QPM Qty: 1 0RF albuterol sulfate 90 mcg/actuation Hfa Aerosol Inhaler 2 puff INHALATION Q4H PRN (Reason: ASTHMA) Qty: 1 0RF Discontinued Pulmicort Flexhaler 90 mcg/actuation Aerosol Powdr Breath Activated 2 inh INHALATION BID Discharge Orders: Discharge Order (Routine); Ordered 01/31/23 Ordered By: Inderjit Troy/Other Patient Handouts: Disinfecting Your Home of COVID-19, Prediabetes, COVID-19 Home Care, Healthy Meals for Diabetes, Managing Diabetes: The A1C Test, Diabetes: Meal Planning Admission Data Admit Date/Time: 01/29/23 15:13 Attending Provider: Inderjit Villeda Admit Provider: Edwin Grimes Primary Care Provider: Lew Velasquez Other Interventions: Discharge Summary Assessment (RN) Last Done: 01/31/23 17:55 Coding Level of Care Code 91531 INP/OBS DISCH >30 MIN Diagnoses COVID-19 U07.1 Asthma exacerbation J45.901 Asthma, persistent not controlled J45.998 Hypothyroid E03.9 Depression F32.9 Prediabetes R73.03 Hyperlipidemia E78.5
[2023-01-31] MEDS: ENOXAPARIN INJ 40 MG/0.4 ML SYR SQ SCH (17:15)
== END 2023-01-31 18:21 | disposition home or self-care (01) ==
LOC: 3N → SUATTDRO 14:20 → 3W 01-30 10:55